=== PATIENT | male | born 2000 | race Caucasian/White ===

== ENCOUNTER 2018-05-31 17:29 | Emergency (ER) | payer MEDICAID ==
[~2018-05-31] VITALS: Ht 175.3 cm; Wt 56.8 kg
[2018-05-31] MEDS ORDERED: MAALOX/LIDOCAINE/NYSTATIN SUSP 5 ML ORAL.SYG PO ONE (20:00)
[2018-05-31] MEDS ORDERED: PENICILLIN G BENZATHINE LA 1,200,000 UNITS/2 ML SYRINGE IM ONE (20:00)
[2018-05-31 20:50] VITALS: BP 116/78
[2018-06-01] MEDS ORDERED: ALBUTEROL SULFATE 5 MG/ML 20 ML NEB SOLN [BULK] NEB ONE (14:45)
== END 2018-05-31 21:06 | disposition home or self-care (01) ==
LOC: EMS 17:30
DX: J02.0 Streptococcal pharyngitis (principal); J03.90 Acute tonsillitis, unspecified
CPT/HCPCS: 96372; 99283; J0561

== ENCOUNTER 2019-05-08 19:34 | Emergency (ER) | payer MEDICAID ==
[~2019-05-08] VITALS: Ht 170.2 cm; Wt 57.7 kg
[2019-05-08] MEDS ORDERED: KETOROLAC TROMETHAMINE 30 MG/ML VIAL IM ONE (23:15)
[2019-05-08 23:21] LABS: BASOPHILS % (AUTO) 0.5 % (0.0-2.0); EOSINOPHILS % (AUTO) 2.2 % (1.0-6.0); HEMATOCRIT 43.1 % (41-53); HEMOGLOBIN 14.5 g/dL (13.5-17.5); LYMPHOCYTES # (AUTO) 2.6 K/uL (1.0-4.8); LYMPHOCYTES % (AUTO) 33.7 % (22.0-44.0); MEAN CORPUSCULAR HEMOGLOBIN 27.6 pg (26.0-34.0); MEAN CORPUSCULAR HGB CONC 33.6 G/dL (31.0-37.0); MEAN CORPUSCULAR VOLUME 82 fL (80-100); MONOCYTES # (AUTO) 0.6 K/uL (0.1-1.0); NEUTROPHILS # (AUTO) 4.3 K/uL (1.8-7.7); NEUTROPHILS % (AUTO) 55.6 % (40.0-70.0); PLATELET COUNT (AUTO) 216 K/uL (150-450); RED BLOOD CELL COUNT(AUTO) 5.24 MIL/uL (4.50-5.90); RED CELL DISTRIBUTION WIDTH 13.4 % (11.5-14.5)
[2019-05-08 23:31] LABS: ANION GAP 7 mmol/L (8-16); CALCIUM, TOTAL 9.3 mg/dL (8.8-10.5); CARBON DIOXIDE 28 mmol/L (22-29); CHLORIDE 103 mmol/L (98-107); CREATININE 1.09 mg/dL (0.60-1.30); GLOMERULAR FILTR. RATE CALC > 60 mL/min (>60); GLUCOSE,RANDOM 95 mg/dL (70-110); POTASSIUM 3.6 mmol/L (3.5-5.1); SODIUM SERUM 138 mmol/L (136-145); UREA NITROGEN, BLOOD 18 mg/dL (7-18)
[2019-05-08 23:37] LABS: ALANINE AMINOTRANSFERASE 17 U/L (12-78); ALBUMIN 4.2 g/dL (3.4-5.0); ALKALINE PHOSPHATASE 88 U/L (46-116); ASPARTATE AMINOTRANSFERASE 12 U/L (15-37); BILIRUBIN,TOTAL 0.3 mg/dL (0.1-1.0); TOTAL PROTEIN, SERUM 7.6 g/dL (6.4-8.2)
[2019-05-09 00:03] VITALS: BP 145/80
== END 2019-05-09 00:12 | disposition home or self-care (01) ==
LOC: EMS 19:35
DX: G43.909 Migraine, unspecified, not intractable, without status migrainosus (principal)
CPT/HCPCS: 36415; 80053; 85025; 96372; 99283; J1885

== ENCOUNTER 2020-01-27 20:05 | Emergency (ER) | payer SELFPAY ==
[~2020-01-27] VITALS: Ht 175.3 cm; Wt 56.8 kg
[2020-01-27] MEDS ORDERED: ACETAMINOPHEN 325 MG TABLET PO ONE (22:15)
[2020-01-27] MEDS ORDERED: DEXAMETHASONE SOD PHOS 4 MG/ML 5 ML VIAL IVP ONE (23:30)
[2020-01-27] MEDS ORDERED: KETOROLAC TROMETHAMINE 30 MG/ML VIAL IVP ONE (23:30)
[2020-01-27] MEDS ORDERED: CefTRIAXone 1 GM/DEXTROSE 50 ML IV ONE (23:30)
[2020-01-27] MEDS ORDERED: IOVERSOL 350 MG/ML 100 ML VIAL ONE (23:34)
[2020-01-27] MEDS ORDERED: SODIUM CHLORIDE 0.9% 100 ML ONE (23:34)
[2020-01-27 23:47] LABS: BASOPHILS % (AUTO) 0.1 % (0.0-2.0); EOSINOPHILS % (AUTO) 0 % (1.0-6.0); HEMATOCRIT 44.4 % (41-53); HEMOGLOBIN 14.5 g/dL (13.5-17.5); LYMPHOCYTES # (AUTO) 1.3 K/uL (1.0-4.8); MEAN CORPUSCULAR HEMOGLOBIN 26.5 pg (26.0-34.0); MEAN CORPUSCULAR HGB CONC 32.7 G/dL (31.0-37.0); MEAN CORPUSCULAR VOLUME 81 fL (80-100); MONOCYTES # (AUTO) 1.8 K/uL (0.1-1.0); MONOCYTES % (AUTO) 10.8 % (2.0-9.0); NEUTROPHILS # (AUTO) 13.4 K/uL (1.8-7.7); NEUTROPHILS % (AUTO) 81.1 % (40.0-70.0); PLATELET COUNT (AUTO) 237 K/uL (150-450); RED BLOOD CELL COUNT(AUTO) 5.47 MIL/uL (4.50-5.90); RED CELL DISTRIBUTION WIDTH 14.1 % (11.5-14.5)
[2020-01-27 23:55] LABS: ANION GAP 9 mmol/L (8-16); CALCIUM, TOTAL 9.5 mg/dL (8.8-10.5); CARBON DIOXIDE 28 mmol/L (22-29); CHLORIDE 100 mmol/L (98-107); CREATININE 1.08 mg/dL (0.60-1.30); GLOMERULAR FILTR. RATE CALC > 60 mL/min (>60); GLUCOSE,RANDOM 90 mg/dL (70-110); POTASSIUM 3.8 mmol/L (3.5-5.1); SODIUM SERUM 137 mmol/L (136-145); UREA NITROGEN, BLOOD 15 mg/dL (7-18)
[2020-01-28 00:02] LABS: ALANINE AMINOTRANSFERASE 23 U/L (12-78); ALBUMIN 4.1 g/dL (3.4-5.0); ALKALINE PHOSPHATASE 79 U/L (46-116); ASPARTATE AMINOTRANSFERASE 16 U/L (15-37); BILIRUBIN,TOTAL 0.6 mg/dL (0.1-1.0); TOTAL PROTEIN, SERUM 8.6 g/dL (6.4-8.2)
[2020-01-28] MEDS ORDERED: CefTRIAXone 1 GM/DEXTROSE 50 ML IV ONE (03:15)
[2020-01-28] MEDS ORDERED: CLINDAMYCIN 900 MG/D5% WATER 50 ML IV ONE (03:15)
[2020-01-28 04:47] VITALS: BP 114/72
== END 2020-01-28 04:49 | disposition home or self-care (01) ==
LOC: EMS 20:06
DX: J36 Peritonsillar abscess (principal); F41.9 Anxiety disorder, unspecified
CPT/HCPCS: 36415; 70491; 80053; 85025; 86308; 96365; 96367; 96375; 96376; 99285; J0696 ×2; J1100; J1885; J3490; J7050; Q9967